=== PATIENT | female | born 1980 | race Caucasian/White ===

== ENCOUNTER 2017-12-27 21:14 | Emergency (ER) | payer SELFPAY ==
[~2017-12-27] VITALS: Ht 154.9 cm; Wt 59.1 kg
[2017-12-27 22:04] LABS: APPEARANCE,URINE CLOUDY (CLEAR); BILIRUBIN,URINE NEGATIVE (NEGATIVE); GLUCOSE, URINE (UA) NEGATIVE (NEGATIVE); KETONES,URINE TRACE mg/dL (NEGATIVE); LEUKOCYTE ESTERASE ,URINE MODERATE (NEGATIVE); NITRATE,URINE NEGATIVE (NEGATIVE); OCCULT BLOOD,URINE LARGE (NEGATIVE); PH,URINE 6.5 (5.0-8.0); PROTEIN,URINE POS 1+ (NEGATIVE)
[2017-12-27 22:16] LABS: BACTERIA,URINE Few /HPF (None Seen); RBC,URINE >100 /HPF (0-2)
[2017-12-27 22:17] LABS: SQUAMOUS EPITHELIAL CELL,UR Few /LPF (None Seen)
[2017-12-27] MEDS ORDERED: PHENAZOPYRIDINE HCL 100 MG TABLET PO ONE (23:15)
[2017-12-27] MEDS ORDERED: KETOROLAC TROMETHAMINE 60 MG/2 ML VIAL IM ONE (23:15)
[2017-12-27] MEDS ORDERED: CEPHALEXIN MONOHYDRATE 500 MG CAPSULE PO ONE (23:15)
[2017-12-27 23:58] VITALS: BP 138/79
== END 2017-12-28 | disposition home or self-care (01) ==
LOC: EMS 21:15
DX: N39.0 Urinary tract infection, site not specified (principal); F17.210 Nicotine dependence, cigarettes, uncomplicated; Z88.8 Allergy status to other drugs, medicaments and biological substances
CPT/HCPCS: 81001; 84703; 87086; 96372; 99284; 99406; J1885